=== PATIENT | female | born 1960 | race Caucasian/White ===

== ENCOUNTER → 2017-04-26 | Outpatient (CLI) | payer OTHER ==
[~2017-04-26] MED LIST: ALBUTEROL0.09 MG/A2 IH; ANAPROX DS550 MG PO; CETIRIZINE HYDR10 MG PO; CIPRO500 MG PO; CIPROFLOXACIN500 MG PO; CLARITIN10 MG PO; CYCLOBENZAPRINE10 MG PO; HYDROCODONE BIT1 T11 PO; HYDRODIURIL25 MG PO; IBU800 M1 PO; LISINOPRIL5 MG PO; MOTRIN600 MG PO; MOTRIN800 MG PO; NOVAPLUS V0.09 MG/Ac IH; PEN-V500 MG PO; PHENERGAN W/DM120 ML PO; PREDNICOT10 MG PO; PREDNISONE10 MG PO; PROAIR HFA0.09 MG/AC INH; QVAR 80MCG/INH7.3 G1 IH; QVAR0.08 MG/AC INH; VIBRAMYCIN100 MG PO; VICODIN 5/500 505 MG PO; VITAMIN D-32000 UNI1 PO; VITAMIN D5000 I2 PO; ZANTAC150 MG PO; ZITHROMAX Z PA250 MG PO; ZOFRAN ODT4 MG SL
== END | disposition home or self-care (01) ==
LOC: RAD 13:08
DX: J44.9 Chronic obstructive pulmonary disease, unspecified (principal); I10 Essential (primary) hypertension; J45.909 Unspecified asthma, uncomplicated; J18.9 Pneumonia, unspecified organism; F17.200 Nicotine dependence, unspecified, uncomplicated

== ENCOUNTER → 2017-04-27 | Outpatient (CLI) | payer OTHER | END | disposition home or self-care (01) | LOC: MAMMO 00:12 | DX: Z12.31 Encounter for screening mammogram for malignant neoplasm of breast (principal) ==

== ENCOUNTER → 2017-10-31 | Outpatient (CLI) | payer OTHER | END | disposition home or self-care (01) | LOC: CARD 10-27 08:30 → US 10-27 09:30 → CT 10:00 → US 10:00 | DX: I65.23 Occlusion and stenosis of bilateral carotid arteries (principal) ==

== ENCOUNTER → 2017-11-01 | Outpatient (CLI) | payer OTHER ==
[2017-11-01 08:46] LABS: BASO # 0.1 10*3/uL (0.0-0.1); BASO % 0.6 % (0.0-1.0); EOS # 0.2 10*3/uL (0.0-0.4); EOS % 1.7 % (1.0-4.0); HEMATOCRIT 45.9 % (37.0-47.0); HEMOGLOBIN 15.3 g/dl (12.0-16.0); LYMPH # 2.8 10*3/uL (1.3-4.4); LYMPH % 32.9 % (27.0-41.0); MEAN CELL VOLUME 86.4 fl (81.0-99.0); MEAN CORPUSCULAR HGB 28.8 pg (27.0-31.0); MEAN CORPUSCULAR HGB CONC 33.3 g/dl (33.0-37.0); MEAN PLATELET VOLUME 11.5 fl (9.6-12.3); MONO # 0.6 10*3/uL (0.1-1.0); MONO % 6.7 % (3.0-9.0); NEUT % 57.9 % (47.0-73.0); PLATELET COUNT AUTOMATED 285 10*3/uL (130-400); RED BLOOD COUNT 5.31 10*6/uL (4.10-5.10); WHITE BLOOD COUNT 8.6 10*3/uL (4.8-10.8)
[2017-11-01 09:12] LABS: ALBUMIN 3.8 gm/dl (3.1-4.5); ALKALINE PHOSPHATASE 91 U/L (45-117); BUN 11 mg/dl (7-24); CHLORIDE 107 mmol/L (98-107); FREE T4 0.85 ng/dl (0.76-1.46); SGOT/AST 21 IU/L (3-35); SGPT/ALT 28 U/L (12-78); SODIUM 144 mmol/L (136-145); TOTAL PROTEIN 7.4 gm/dL (6.4-8.2)
== END | disposition home or self-care (01) ==
LOC: LAB 08:24 → CARD 08:30
PROVIDERS: Internal Medicine
DX: R42 Dizziness and giddiness (principal)

== ENCOUNTER 2018-03-25 10:40 | Emergency (ER) | payer OTHER ==
[~2018-03-25] VITALS: Wt 74.8 kg
[~2018-03-25 10:40] MED LIST changes: -NOVAPLUS V0.09 MG/Ac IH; +PROVENTIL HFA6.7 GM INH; +VENTOLIN,PR2 MG/5 ML NEB
[2018-03-25 11:05] LABS: BASO # 0.1 10*3/uL (0.0-0.1); BASO % 0.4 % (0.0-1.0); EOS # 0.1 10*3/uL (0.0-0.4); EOS % 0.4 % (1.0-4.0); HEMATOCRIT 43.3 % (37.0-47.0); HEMOGLOBIN 14.2 g/dl (12.0-16.0); LYMPH # 2.2 10*3/uL (1.3-4.4); LYMPH % 15.7 % (27.0-41.0); MEAN CELL VOLUME 88.2 fl (81.0-99.0); MEAN CORPUSCULAR HGB 28.9 pg (27.0-31.0); MEAN CORPUSCULAR HGB CONC 32.8 g/dl (33.0-37.0); MEAN PLATELET VOLUME 11.1 fl (9.6-12.3); MONO # 0.9 10*3/uL (0.1-1.0); MONO % 6.4 % (3.0-9.0); NEUT # 10.6 10*3/uL (2.3-7.9); NEUT % 76.9 % (47.0-73.0); PLATELET COUNT AUTOMATED 238 10*3/uL (130-400); RED BLOOD COUNT 4.91 10*6/uL (4.10-5.10); RED CELL DISTRI WIDTH 13.6 % (0-14.5); WHITE BLOOD COUNT 13.8 10*3/uL (4.8-10.8)
[2018-03-25 11:35] LABS: ALBUMIN 3.8 gm/dl (3.1-4.5); ALKALINE PHOSPHATASE 85 U/L (45-117); BUN 10 mg/dl (7-24); CHLORIDE 109 mmol/L (98-107); CREATININE 0.96 mg/dL (0.55-1.02); POTASSIUM 3.7 mmol/L (3.5-5.1); SGOT/AST 13 IU/L (3-35); SGPT/ALT 21 U/L (12-78); SODIUM 142 mmol/L (136-145); TOTAL PROTEIN 7.1 gm/dL (6.4-8.2)
[2018-03-25 11:37] LABS: TROPONIN I < 0.015 ng/ml (<0.045)
[2018-03-25 12:36] VITALS: BP 116/66
[2018-03-25] MEDS ORDERED: ZITHROMAX250 MG PO (12:40)
[2018-03-25] MEDS ORDERED: PREDNISONE20 M1 PO (12:40)
== END 2018-03-25 12:40 | disposition home or self-care (01) ==
LOC: ED 10:40
PROVIDERS: Emergency Medicine
DX: J44.1 Chronic obstructive pulmonary disease with (acute) exacerbation (principal); F17.210 Nicotine dependence, cigarettes, uncomplicated

== ENCOUNTER 2018-04-06 14:08 | Inpatient (IN) | payer OTHER ==
[~2018-04-06] VITALS: Ht 162.5 cm; Wt 75.3 kg
--- NOTE | ~2018-04-06 | PR ---
[place], [place] PROGRESS NOTE NAME: DEX RIVAS [facility] #: [id number] UNIT #: [id number] ROOM: 404 DOCTOR: NELSY MOSQUEDA MD BIRTHDATE: [birth year] DOS: 04/08/2018 SUBJECTIVE: The patient, who has been admitted to hospital with acute exacerbation of COPD, emphysema, and pneumonitis. She is gradually recovering. The patient is on Solu-Medrol and that has put her CBC count high to 39,100 and 92% neutrophils, 5% lymphocytes, ____ and her basic metabolic profile showed glucose 181, possible due to Solu-Medrol. BUN is 22, creatinine 1.03. GFR is 55 and chloride 108, other values are normal. Her repeat CBC done today also showed white count elevated at 42,400 and so due to that reason which patient wanted to go home, but I told her that since her white count is so high, I cannot discharge her. Hopefully, she will stay in the hospital. Her blood culture is negative. PHYSICAL EXAMINATION: VITAL SIGNS: Her blood pressure 120/78, pulse 97, respirations 20, temperature 98. CHEST: Having occasional wheeze. No crepitation. HEART: Regular. ABDOMEN: Soft. PLAN: The patient is very strongly advised not to smoke when she goes home. ____ to follow. NELSY MOSQUEDA MD CM:PNTRANS [id number] NELSY MOSQUEDA MD 04/19/18 0846 interface
--- NOTE | ~2018-04-06 | EKG ---
[place], [place] ELECTROCARDIOGRAM REPORT NAME: DEX RIVAS UNIT #: [id number] ROOM: 404 DOCTOR: SIVA FIGUEREDO MD BIRTHDATE: [birth year] DOS: 04/06/2018 EKG REPORT TIME: 14:47:31 RATE AND RHYTHM: Normal sinus rhythm at 96 beats per minute. MN interval 132 milliseconds, QRS duration 94 milliseconds, corrected QT interval 448 milliseconds, QRS axis 25. IMPRESSION: 1. Sinus tachycardia. 2. Atrial premature complexes. SIVA FIGUEREDO MD CM:EKGRPT:ELECTROCARDIOGRAM REPORT [id number] SIVA FIGUEREDO MD
--- NOTE | ~2018-04-06 | WRIGHTHP ---
[place], [place] PATIENT HISTORY AND PHYSICAL EXAM NAME: DEX RIVAS [facility] #: [id number] UNIT #: [id number] ROOM: 404 DOCTOR: NELSY MOSQUEDA MD BIRTHDATE: [birth year] DOS: 04/06/2018 HISTORY OF PRESENT ILLNESS: The patient has been admitted to hospital with acute exacerbation of COPD with emphysema with failure of outpatient treatment of pneumonia. The patient is having cough with increasing difficulty in breathing for last many days, was seen by Dr. Ariza in the office, from where she was admitted to hospital. PAST MEDICAL HISTORY: The patient has past history of COPD with emphysema, has been admitted to the hospital for that. She has recurring history of bronchitis, chest pain, thoracic sprain. ALLERGIES: The patient is not allergic to medications. MEDICATIONS: She is using albuterol 2 puffs q. 6 hours p.r.n., lisinopril 5 mg daily, QVAR 2 puffs twice daily, vitamin D 2000 units daily, Zyrtec 10 mg daily. SOCIAL HISTORY: The patient does smoke half pack of cigarettes daily. She denies drinking alcohol. No recreational drugs. FAMILY HISTORY: There is strong history of diabetes mellitus, cancer, myocardial infarction, hypertension in the family. PHYSICAL EXAMINATION: GENERAL: The patient is conscious, alert and oriented. VITAL SIGNS: Her blood pressure 115/85, pulse 100, respirations 18, temperature 97.6. HEENT: Unremarkable. No glandular enlargement. NECK: Trachea is center. NECK: Veins are not distended. HEART: Regular. LUNGS: Showing increased expiration phase with some wheezing. ABDOMEN: Soft. Liver and spleen not palpable. No area of tenderness. No mass palpable. EXTREMITIES: No edema of leg. LABORATORY DATA: Lactic acid is 1.9, which is normal. CBC showed white count 16,000, hemoglobin 15.7, hematocrit 47.7. Protime is 10.8. Comprehensive metabolic profile showed glucose 114, BUN 10, creatinine 1.21, GFR 46, potassium 3.1. C-reactive protein high. Other values are normal. ProBNP is 55, which is normal. Chest x-ray shows no acute cardiopulmonary process. DIAGNOSES: Failure of treatment of pneumonia as outpatient with history of chronic obstructive pulmonary disease, emphysema, tobacco abuse, history of hypertension. PLAN OF TREATMENT: The patient will be admitted to the hospital, will be started on Solu-Medrol, will continue taking her home medication, aerosol treatment, Rocephin 1 gram IV every day, levofloxacin 500 IV daily and Solu-Medrol 125 mg every 8 hours. [place], [place] PATIENT HISTORY AND PHYSICAL EXAM NAME: DEX RIVAS UNIT #: [id number] ROOM: 404 DOCTOR: JAYLIN ALLEN,NELSY Terry BIRTHDATE: [birth year] NELSY MOSQUEDA MD CM:HISPHYS:PATIENT HISTORY AND PHYSICAL EXAMINATION 26 NELSY MOSQUEDA MD 04/19/18 0846 interface
[~2018-04-06 14:08] MED LIST changes: +PREDNISONE20 M1 PO; +ZITHROMAX250 MG PO
[2018-04-06 14:12] VITALS: BP 97/80
[2018-04-06 14:57] LABS: BASO # 0.1 10*3/uL (0.0-0.1); BASO % 0.4 % (0.0-1.0); EOS # 0.2 10*3/uL (0.0-0.4); EOS % 1.4 % (1.0-4.0); HEMATOCRIT 47.7 % (37.0-47.0); HEMOGLOBIN 15.7 g/dl (12.0-16.0); LYMPH # 4.2 10*3/uL (1.3-4.4); LYMPH % 26.1 % (27.0-41.0); MEAN CELL VOLUME 86.6 fl (81.0-99.0); MEAN CORPUSCULAR HGB 28.5 pg (27.0-31.0); MEAN CORPUSCULAR HGB CONC 32.9 g/dl (33.0-37.0); MEAN PLATELET VOLUME 11.4 fl (9.6-12.3); MONO # 1.2 10*3/uL (0.1-1.0); MONO % 7.3 % (3.0-9.0); NEUT # 10.5 10*3/uL (2.3-7.9); NEUT % 64.2 % (47.0-73.0); PLATELET COUNT AUTOMATED 313 10*3/uL (130-400); RED BLOOD COUNT 5.51 10*6/uL (4.10-5.10); RED CELL DISTRI WIDTH 13.6 % (0-14.5); WHITE BLOOD COUNT 16.3 10*3/uL (4.8-10.8)
[2018-04-06 15:09] LABS: ACT PARTIAL THROMBO TIME 24.4 SECONDS (20.8-31.5)
[2018-04-06 15:15] LABS: ALBUMIN 4.2 gm/dl (3.1-4.5); ALKALINE PHOSPHATASE 88 U/L (45-117); BUN 10 mg/dl (7-24); CHLORIDE 106 mmol/L (98-107); CREATININE 1.21 mg/dL (0.55-1.02); LIPASE 224 U/L (73-393); POTASSIUM 3.1 mmol/L (3.5-5.1); SGOT/AST 12 IU/L (3-35); SGPT/ALT 17 U/L (12-78); SODIUM 142 mmol/L (136-145); TOTAL PROTEIN 7.8 gm/dL (6.4-8.2)
[2018-04-06 15:21] LABS: TROPONIN I < 0.015 ng/ml (<0.045)
[2018-04-06 16:00] VITALS: BP 138/80
[2018-04-06 16:05] VITALS: BP 139/81
[2018-04-06] MEDS ORDERED: LIPITOR20 MG PO (17:04)
[2018-04-06] MEDS ORDERED: HYDR25T PO (17:05)
[2018-04-06] MEDS ORDERED: GABAPENTIN100 M2 PO (17:06)
[2018-04-06] MEDS ORDERED: CLARITIN10 MG PO (17:07)
[2018-04-06] MEDS ORDERED: BREO ELLIPTA 21 EACH INH (17:08)
[2018-04-06 20:00] VITALS: BP 124/72
[2018-04-07] VITALS: BP 115/85
[2018-04-07 08:00] VITALS: BP 116/68
[2018-04-07 12:00] VITALS: BP 112/60
[2018-04-07 16:00] VITALS: BP 120/69
[2018-04-07 20:00] VITALS: BP 109/63
[2018-04-08] VITALS: BP 113/60
[2018-04-08 06:40] LABS: MEAN CELL VOLUME 88.7 fl (81.0-99.0); MEAN CORPUSCULAR HGB 28.8 pg (27.0-31.0); MEAN CORPUSCULAR HGB CONC 32.5 g/dl (33.0-37.0); MEAN PLATELET VOLUME 12.3 fl (9.6-12.3); PLATELET COUNT AUTOMATED 245 10*3/uL (130-400); RED BLOOD COUNT 4.41 10*6/uL (4.10-5.10); RED CELL DISTRI WIDTH 13.7 % (0-14.5)
[2018-04-08 06:44] LABS: HEMATOCRIT 39.1 % (37.0-47.0); HEMOGLOBIN 12.7 g/dl (12.0-16.0)
[2018-04-08 07:01] LABS: CHLORIDE 108 mmol/L (98-107); POTASSIUM 3.9 mmol/L (3.5-5.1); SODIUM 143 mmol/L (136-145)
[2018-04-08 07:04] LABS: CREATININE 1.03 mg/dL (0.55-1.02)
[2018-04-08 07:12] LABS: BURR CELLS MODERATE; PLATELET SUFFICIENCY NORMAL (NORMAL); TOTAL CELLS COUNTED 100 #CELLS
[2018-04-08 07:15] LABS: WHITE BLOOD COUNT 39.1 10*3/uL (4.8-10.8)
[2018-04-08 07:19] LABS: BUN 22 mg/dl (7-24)
[2018-04-08 07:38] LABS: HEMATOCRIT 40.6 % (37.0-47.0); HEMOGLOBIN 13.5 g/dl (12.0-16.0); MEAN CELL VOLUME 87.7 fl (81.0-99.0); MEAN CORPUSCULAR HGB 29.2 pg (27.0-31.0); MEAN CORPUSCULAR HGB CONC 33.3 g/dl (33.0-37.0); PLATELET COUNT AUTOMATED 253 10*3/uL (130-400); RED BLOOD COUNT 4.63 10*6/uL (4.10-5.10); RED CELL DISTRI WIDTH 13.8 % (0-14.5)
[2018-04-08 07:57] LABS: PLATELET SUFFICIENCY NORMAL (NORMAL); TOTAL CELLS COUNTED 100 #CELLS
[2018-04-08 08:00] VITALS: BP 120/78
[2018-04-08 08:00] LABS: WHITE BLOOD COUNT 42.4 10*3/uL (4.8-10.8)
[2018-04-08 12:00] VITALS: BP 136/76
[2018-04-08 16:00] VITALS: BP 117/72
[2018-04-08 20:00] VITALS: BP 108/72
[2018-04-09] VITALS: BP 127/85
[2018-04-09 06:28] LABS: HEMATOCRIT 40.7 % (37.0-47.0); HEMOGLOBIN 13.1 g/dl (12.0-16.0); MEAN CELL VOLUME 89.6 fl (81.0-99.0); MEAN CORPUSCULAR HGB 28.9 pg (27.0-31.0); MEAN CORPUSCULAR HGB CONC 32.2 g/dl (33.0-37.0); MEAN PLATELET VOLUME 12.1 fl (9.6-12.3); PLATELET COUNT AUTOMATED 224 10*3/uL (130-400); RED BLOOD COUNT 4.54 10*6/uL (4.10-5.10); RED CELL DISTRI WIDTH 14.1 % (0-14.5); WHITE BLOOD COUNT 16.2 10*3/uL (4.8-10.8)
[2018-04-09 07:16] LABS: BASOPHILS 1 % (0-1); PLATELET SUFFICIENCY NORMAL (NORMAL); TOTAL CELLS COUNTED 100 #CELLS
[2018-04-09 08:00] VITALS: BP 114/86
[2018-04-09] MEDS ORDERED: AVPAK AZITHROM250 M1 PO (13:53)
[2018-04-09] MEDS ORDERED: NICODERM T (13:53)
[2018-04-09] MEDS ORDERED: NICODERM CQ1 EAC1 T (13:57)
[2018-04-09 14:09] LABS: BUN 20 mg/dl (7-24); CHLORIDE 102 mmol/L (98-107); CREATININE 0.91 mg/dL (0.55-1.02); PHOSPHOROUS 3.9 mg/dL (2.5-4.9); POTASSIUM 3.6 mmol/L (3.5-5.1); SODIUM 140 mmol/L (136-145)
== END 2018-04-09 15:33 | disposition home or self-care (01) | DRG 193 ==
LOC: ED 14:08 → EDHOLD 15:42 → 4E 15:42
PROVIDERS: Emergency Medicine; Family Medicine; Internal Medicine; Internal Medicine Nephrology
DX: J18.9 Pneumonia, unspecified organism (principal); R65.11 Systemic inflammatory response syndrome (SIRS) of non-infectious origin with acute organ dysfunction; E87.8 Other disorders of electrolyte and fluid balance, not elsewhere classified; J44.1 Chronic obstructive pulmonary disease with (acute) exacerbation; J44.0 Chronic obstructive pulmonary disease with (acute) lower respiratory infection; I10 Essential (primary) hypertension; R00.0 Tachycardia, unspecified; D72.810 Lymphocytopenia; D72.821 Monocytosis (symptomatic); E87.6 Hypokalemia; R73.9 Hyperglycemia, unspecified; E66.3 Overweight; Z79.899 Other long term (current) drug therapy; Z72.0 Tobacco use; Z98.51 Tubal ligation status; Z83.3 Family history of diabetes mellitus; Z82.49 Family history of ischemic heart disease and other diseases of the circulatory system; Z80.9 Family history of malignant neoplasm, unspecified; Z68.28 Body mass index [BMI] 28.0-28.9, adult

== ENCOUNTER 2018-05-11 14:14 | Emergency (ER) | payer OTHER ==
[~2018-05-11] VITALS: Ht 162.5 cm; Wt 72.6 kg
[~2018-05-11 14:14] MED LIST changes: +AVPAK AZITHROM250 M1 PO; +BREO ELLIPTA 21 EACH INH; +GABAPENTIN100 M2 PO; +HYDR25T PO; +LIPITOR20 MG PO; +NICODERM CQ1 EAC1 T; +NICODERM T
[2018-05-11 14:16] VITALS: BP 131/85
== END 2018-05-11 18:10 | disposition home or self-care (01) ==
LOC: ED 14:14
DX: S80.12XA Contusion of left lower leg, initial encounter (principal); F17.200 Nicotine dependence, unspecified, uncomplicated; Z98.890 Other specified postprocedural states; Z90.49 Acquired absence of other specified parts of digestive tract; Z90.710 Acquired absence of both cervix and uterus; Z98.51 Tubal ligation status; Z79.899 Other long term (current) drug therapy; W22.8XXA Striking against or struck by other objects, initial encounter; Y93.89 Activity, other specified; Y92.89 Other specified places as the place of occurrence of the external cause; Y99.9 Unspecified external cause status

== ENCOUNTER 2018-07-05 11:08 | Emergency (ER) | payer OTHER ==
[~2018-07-05] VITALS: Ht 162.5 cm; Wt 74.8 kg
--- NOTE | ~2018-07-05 | EKG ---
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
[2018-07-05 11:38] LABS: BASO # 0.1 10*3/uL (0.0-0.1); BASO % 0.7 % (0.0-1.0); EOS # 0.2 10*3/uL (0.0-0.4); EOS % 2.4 % (1.0-4.0); HEMATOCRIT 44.5 % (37.0-47.0); LYMPH # 2.4 10*3/uL (1.3-4.4); LYMPH % 29.2 % (27.0-41.0); MEAN CELL VOLUME 86.2 fl (81.0-99.0); MEAN CORPUSCULAR HGB 29.1 pg (27.0-31.0); MEAN CORPUSCULAR HGB CONC 33.7 g/dl (33.0-37.0); MEAN PLATELET VOLUME 11.6 fl (9.6-12.3); MONO # 0.8 10*3/uL (0.1-1.0); MONO % 9.8 % (3.0-9.0); NEUT # 4.8 10*3/uL (2.3-7.9); NEUT % 57.7 % (47.0-73.0); PLATELET COUNT AUTOMATED 257 10*3/uL (130-400); RED BLOOD COUNT 5.16 10*6/uL (4.10-5.10); WHITE BLOOD COUNT 8.3 10*3/uL (4.8-10.8)
[2018-07-05 11:55] LABS: ALKALINE PHOSPHATASE 92 U/L (45-117); BUN 20 mg/dl (7-24); CHLORIDE 104 mmol/L (98-107); POTASSIUM 3.9 mmol/L (3.5-5.1); SGOT/AST 18 IU/L (3-35); SGPT/ALT 23 U/L (12-78); SODIUM 139 mmol/L (136-145); TOTAL PROTEIN 7.6 gm/dL (6.4-8.2); TROPONIN I < 0.015 ng/ml (<0.045)
[2018-07-05] MEDS ORDERED: DOXYCYCLINE100 M3 PO (13:21)
[2018-07-05] MEDS ORDERED: PREDNISONE10 MG PO (13:21)
== END 2018-07-05 13:53 | disposition home or self-care (01) ==
LOC: ED 11:08
PROVIDERS: Internal Medicine
DX: J44.1 Chronic obstructive pulmonary disease with (acute) exacerbation (principal); M81.0 Age-related osteoporosis without current pathological fracture; F17.200 Nicotine dependence, unspecified, uncomplicated; J45.909 Unspecified asthma, uncomplicated; Z79.899 Other long term (current) drug therapy

== ENCOUNTER 2018-10-28 14:49 | Emergency (ER) | payer MEDICARE, MEDICAID ==
[~2018-10-28] VITALS: Ht 162.5 cm; Wt 72.6 kg
[~2018-10-28 14:49] MED LIST changes: +DOXYCYCLINE100 M3 PO
[2018-10-28 14:51] VITALS: BP 150/90
[2018-10-28] MEDS ORDERED: NORCO 5-325 TA1 EACH PO (16:19)
== END 2018-10-28 16:25 | disposition home or self-care (01) ==
LOC: ED 14:49
DX: S22.31XA Fracture of one rib, right side, initial encounter for closed fracture (principal); R05 Cough; Z79.899 Other long term (current) drug therapy; W01.0XXA Fall on same level from slipping, tripping and stumbling without subsequent striking against object, initial encounter; Y93.89 Activity, other specified; Y92.89 Other specified places as the place of occurrence of the external cause; Y99.8 Other external cause status

== ENCOUNTER → 2018-11-13 | Outpatient (CLI) | payer MEDICARE, MEDICAID ==
[~2018-11-13] MED LIST changes: +NORCO 5-325 TA1 EACH PO; +TAMIFLU 75MG CA75 MG PO; +VALTREX1000 MG PO
== END | disposition home or self-care (01) ==
LOC: RAD 13:44
DX: S22.31XD Fracture of one rib, right side, subsequent encounter for fracture with routine healing (principal); X58.XXXD Exposure to other specified factors, subsequent encounter

== ENCOUNTER 2019-01-07 14:55 | Emergency (ER) | payer MEDICARE ==
[~2019-01-07] VITALS: Ht 162.5 cm; Wt 72.6 kg
--- NOTE | ~2019-01-07 | EKG ---
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
[2019-01-07 14:55] VITALS: BP 116/78
[~2019-01-07 14:55] MED LIST changes: -TAMIFLU 75MG CA75 MG PO; -VALTREX1000 MG PO
[2019-01-07 16:16] LABS: BASO % 0.2 % (0.0-1.0); EOS # 0.1 10*3/uL (0.0-0.4); EOS % 0.7 % (1.0-4.0); HEMATOCRIT 44.9 % (37.0-47.0); HEMOGLOBIN 14.9 g/dl (12.0-16.0); LYMPH # 0.4 10*3/uL (1.3-4.4); LYMPH % 4.9 % (27.0-41.0); MEAN CELL VOLUME 86.8 fl (81.0-99.0); MEAN CORPUSCULAR HGB 28.8 pg (27.0-31.0); MEAN CORPUSCULAR HGB CONC 33.2 g/dl (33.0-37.0); MEAN PLATELET VOLUME 11.5 fl (9.6-12.3); MONO # 0.9 10*3/uL (0.1-1.0); MONO % 10.3 % (3.0-9.0); NEUT # 7.4 10*3/uL (2.3-7.9); NEUT % 83.6 % (47.0-73.0); PLATELET COUNT AUTOMATED 271 10*3/uL (130-400); RED BLOOD COUNT 5.17 10*6/uL (4.10-5.10); RED CELL DISTRI WIDTH 14.6 % (0-14.5); WHITE BLOOD COUNT 8.8 10*3/uL (4.8-10.8)
[2019-01-07 16:31] LABS: ACT PARTIAL THROMBO TIME 25.8 SECONDS (20.8-31.5); INTERNATIONAL NORM RATIO 1.1 (2.0-3.5)
[2019-01-07 16:41] LABS: ALBUMIN 3.7 gm/dl (3.1-4.5); ALKALINE PHOSPHATASE 95 U/L (45-117); BUN 13 mg/dl (7-24); CHLORIDE 103 mmol/L (98-107); CREATININE 1.07 mg/dL (0.55-1.02); POTASSIUM 3.7 mmol/L (3.5-5.1); SGOT/AST 18 IU/L (3-35); SGPT/ALT 18 U/L (12-78); SODIUM 137 mmol/L (136-145); TOTAL PROTEIN 7.8 gm/dL (6.4-8.2)
[2019-01-07 16:45] LABS: TROPONIN I < 0.015 ng/ml (<0.045)
[2019-01-07 16:54] LABS: BILIRUBIN NEGATIVE (NEGATIVE); BLOOD NEGATIVE (NEGATIVE); CLARITY CLEAR (CLEAR); COLOR YELLOW (YELLOW); GLUCOSE NEGATIVE (NEGATIVE); KETONE NEGATIVE (NEGATIVE); LEUKO ESTERASE TRACE (NEGATIVE); NITRITE NEGATIVE (NEGATIVE); SPECIFIC GRAVITY 1.015 (1.005-1.030); UROBILINOGEN 0.2 E.U./dl (0.2-1.0)
[2019-01-07 17:00] LABS: BACTERIA 2+; MUCOUS TRACE; RBC 0-2 rbc/hpf (0-2)
[2019-01-07] MEDS ORDERED: TAMIFLU 75MG CA75 MG PO (17:13)
[2019-01-07] MEDS ORDERED: PREDNISONE10 MG PO (17:16)
[2019-01-07] MEDS ORDERED: VIBRAMYCIN100 MG PO (17:16)
[2019-03-10] MEDS ORDERED: PREDNISONE20 M1 PO (14:21)
[2019-03-10] MEDS ORDERED: VALTREX1000 MG PO (14:21)
== END 2019-01-07 17:28 | disposition home or self-care (01) ==
LOC: ED 14:55
PROVIDERS: Physician Assistant
DX: J10.1 Influenza due to other identified influenza virus with other respiratory manifestations (principal); J44.9 Chronic obstructive pulmonary disease, unspecified; F17.200 Nicotine dependence, unspecified, uncomplicated; Z79.899 Other long term (current) drug therapy; Z79.2 Long term (current) use of antibiotics; Z90.710 Acquired absence of both cervix and uterus; Z90.49 Acquired absence of other specified parts of digestive tract

== ENCOUNTER → 2019-02-13 | Outpatient (CLI) | payer MEDICARE ==
[~2019-02-13] MED LIST changes: +TAMIFLU 75MG CA75 MG PO; +VALTREX1000 MG PO
[2019-02-13 15:13] LABS: ALBUMIN 3.7 gm/dl (3.1-4.5); ALKALINE PHOSPHATASE 97 U/L (45-117); BUN 18 mg/dl (7-24); CHLORIDE 104 mmol/L (98-107); CREATININE 1.08 mg/dL (0.55-1.02); PHOSPHOROUS 3.5 mg/dL (2.5-4.9); POTASSIUM 3.7 mmol/L (3.5-5.1); SGOT/AST 17 IU/L (3-35); SGPT/ALT 21 U/L (12-78); SODIUM 141 mmol/L (136-145); TOTAL PROTEIN 7.5 gm/dL (6.4-8.2)
[2019-02-13 15:35] LABS: VITAMIN D, 25-HYDROXY 29.6 ng/mL (30-100)
[2019-02-13 15:36] LABS: PTH INTACT 101.6 pg/mL (18.5-88.0)
== END | disposition home or self-care (01) ==
LOC: LAB 14:29 → US 15:00
PROVIDERS: Internal Medicine
DX: I12.9 Hypertensive chronic kidney disease with stage 1 through stage 4 chronic kidney disease, or unspecified chronic kidney disease (principal); N18.3 Chronic kidney disease, stage 3 (moderate); M54.5 Low back pain; E78.5 Hyperlipidemia, unspecified; Z87.440 Personal history of urinary (tract) infections; Z90.710 Acquired absence of both cervix and uterus

== ENCOUNTER → 2019-03-12 | Outpatient (CLI) | payer MEDICARE | END | disposition home or self-care (01) | LOC: US 07:12 | DX: N64.4 Mastodynia (principal) ==

== ENCOUNTER → 2019-03-26 | Outpatient (CLI) | payer MEDICARE ==
[2019-03-26 13:16] LABS: BILIRUBIN NEGATIVE (NEGATIVE); BLOOD NEGATIVE (NEGATIVE); CLARITY CLEAR (CLEAR); COLOR YELLOW (YELLOW); GLUCOSE NEGATIVE (NEGATIVE); KETONE NEGATIVE (NEGATIVE); LEUKO ESTERASE NEGATIVE (NEGATIVE); NITRITE NEGATIVE (NEGATIVE); UROBILINOGEN 0.2 E.U./dl (0.2-1.0)
[2019-03-26 13:26] LABS: BASO # 0.1 10*3/uL (0.0-0.1); BASO % 0.5 % (0.0-1.0); EOS # 0.1 10*3/uL (0.0-0.4); EOS % 1.1 % (1.0-4.0); HEMATOCRIT 46.7 % (37.0-47.0); HEMOGLOBIN 15.5 g/dl (12.0-16.0); LYMPH # 2.2 10*3/uL (1.3-4.4); LYMPH % 22.7 % (27.0-41.0); MEAN CELL VOLUME 88.3 fl (81.0-99.0); MEAN CORPUSCULAR HGB 29.3 pg (27.0-31.0); MEAN CORPUSCULAR HGB CONC 33.2 g/dl (33.0-37.0); MEAN PLATELET VOLUME 11.5 fl (9.6-12.3); MONO # 0.8 10*3/uL (0.1-1.0); MONO % 8.3 % (3.0-9.0); NEUT # 6.5 10*3/uL (2.3-7.9); NEUT % 66.9 % (47.0-73.0); PLATELET COUNT AUTOMATED 295 10*3/uL (130-400); RED BLOOD COUNT 5.29 10*6/uL (4.10-5.10); RED CELL DISTRI WIDTH 13.8 % (0-14.5); WHITE BLOOD COUNT 9.8 10*3/uL (4.8-10.8)
[2019-03-26 13:32] LABS: WBC 0-2 wbc/hpf (0-5)
[2019-03-26 13:57] LABS: ALBUMIN 3.7 gm/dl (3.1-4.5); BUN 12 mg/dl (7-24); CHLORIDE 105 mmol/L (98-107); CREATININE 1.02 mg/dL (0.55-1.02); POTASSIUM 3.8 mmol/L (3.5-5.1); SGOT/AST 16 IU/L (3-35); SGPT/ALT 25 U/L (12-78); SODIUM 139 mmol/L (136-145); TOTAL PROTEIN 7.5 gm/dL (6.4-8.2)
[2019-03-26 13:58] LABS: ALKALINE PHOSPHATASE 90 U/L (45-117)
== END | disposition home or self-care (01) ==
LOC: LAB 12:43
PROVIDERS: Nurse Practitioner Family
DX: N39.0 Urinary tract infection, site not specified (principal); I10 Essential (primary) hypertension

== ENCOUNTER → 2019-04-22 | Outpatient (CLI) | payer MEDICARE | END | disposition home or self-care (01) | LOC: US 09:28 | DX: D35.01 Benign neoplasm of right adrenal gland (principal) ==

== ENCOUNTER → 2019-05-20 | Outpatient (CLI) | payer MEDICARE ==
[2019-05-20 13:08] LABS: CREATININE 0.91 mg/dL (0.55-1.02)
== END | disposition home or self-care (01) ==
LOC: LAB 11:58
PROVIDERS: Radiology Diagnostic Radiology
DX: D35.01 Benign neoplasm of right adrenal gland (principal)

== ENCOUNTER → 2019-06-12 | Outpatient (CLI) | payer MEDICARE ==
[2019-06-12 08:45] LABS: BUN 11 mg/dl (7-24); CHLORIDE 103 mmol/L (98-107); CREATININE 0.94 mg/dL (0.55-1.02); PHOSPHOROUS 4.2 mg/dL (2.5-4.9); POTASSIUM 3.7 mmol/L (3.5-5.1); SODIUM 137 mmol/L (136-145)
[2019-06-12 09:17] LABS: PTH INTACT 122.3 pg/mL (18.5-88.0); VITAMIN D, 25-HYDROXY 30.3 ng/mL (30-100)
[2019-06-15 15:08] LABS: ALDOSTERONE/RENIN RATIO 72.9 (0.0-30.0); RENIN ACTIVITY (PLASMA) 0.181 ng/mL/hr (0.167-5.380)
[2019-06-17 15:07] LABS: METANEPHRINE, PLASMA 16 pg/mL (0-62); NORMETANEPHRINE, PLASMA 83 pg/mL (0-145)
== END ==
LOC: LAB 07:40
PROVIDERS: Internal Medicine Nephrology
DX: D35.00 Benign neoplasm of unspecified adrenal gland (principal); N18.3 Chronic kidney disease, stage 3 (moderate); E83.9 Disorder of mineral metabolism, unspecified

== ENCOUNTER → 2019-07-01 | Outpatient (CLI) | payer MEDICARE | END | disposition home or self-care (01) | LOC: NM 09:51 | DX: N25.81 Secondary hyperparathyroidism of renal origin (principal); I10 Essential (primary) hypertension ==

== ENCOUNTER → 2019-07-06 | Outpatient (CLI) | payer OTHER, MEDICARE ==
[2019-07-07 06:35] LABS: CREATININE,URINE 141.8 mg/dL (Not Estab.)
== END | disposition home or self-care (01) ==
LOC: LAB 16:48
PROVIDERS: Internal Medicine Nephrology
DX: N25.81 Secondary hyperparathyroidism of renal origin (principal)

== ENCOUNTER 2019-11-26 08:08 | Emergency (ER) | payer MEDICARE ==
[~2019-11-26] VITALS: Ht 162.5 cm; Wt 68.9 kg
[2019-11-26 08:18] VITALS: BP 130/90
[2019-11-26 09:42] LABS: BASO # 0.1 10*3/uL (0.0-0.1); BASO % 0.5 % (0.0-1.0); EOS % 0.4 % (1.0-4.0); HEMATOCRIT 44.9 % (37.0-47.0); HEMOGLOBIN 14.5 g/dl (12.0-16.0); LYMPH # 1.5 10*3/uL (1.3-4.4); LYMPH % 15.8 % (27.0-41.0); MEAN CORPUSCULAR HGB 28.1 pg (27.0-31.0); MEAN CORPUSCULAR HGB CONC 32.3 g/dl (33.0-37.0); MEAN PLATELET VOLUME 11.1 fl (9.6-12.3); MONO # 1.2 10*3/uL (0.1-1.0); MONO % 12.3 % (3.0-9.0); NEUT # 6.8 10*3/uL (2.3-7.9); NEUT % 70.7 % (47.0-73.0); PLATELET COUNT AUTOMATED 258 10*3/uL (130-400); RED BLOOD COUNT 5.16 10*6/uL (4.10-5.10); RED CELL DISTRI WIDTH 13.8 % (0-14.5); WHITE BLOOD COUNT 9.6 10*3/uL (4.8-10.8)
[2019-11-26 09:51] LABS: ACT PARTIAL THROMBO TIME 31.9 SECONDS (20.0-32.1)
[2019-11-26 10:00] LABS: ALBUMIN 3.8 gm/dl (3.1-4.5); ALKALINE PHOSPHATASE 89 U/L (45-117); BUN 11 mg/dl (7-24); CHLORIDE 105 mmol/L (98-107); CREATININE 1.15 mg/dL (0.55-1.02); LIPASE 182 U/L (73-393); POTASSIUM 4.1 mmol/L (3.5-5.1); SGOT/AST 16 IU/L (3-35); SGPT/ALT 21 U/L (12-78); SODIUM 137 mmol/L (136-145); TOTAL PROTEIN 7.5 gm/dL (6.4-8.2)
[2019-11-26 10:05] LABS: TROPONIN I < 0.015 ng/ml (<0.045)
[2019-11-26 10:37] LABS: BILIRUBIN NEGATIVE (NEGATIVE); BLOOD NEGATIVE (NEGATIVE); CLARITY CLEAR (CLEAR); COLOR YELLOW (YELLOW); GLUCOSE NEGATIVE (NEGATIVE); KETONE NEGATIVE (NEGATIVE); LEUKO ESTERASE NEGATIVE (NEGATIVE); NITRITE NEGATIVE (NEGATIVE); PH 8.5 (5.0-9.0); UROBILINOGEN 0.2 E.U./dl (0.2-1.0)
[2019-11-26 10:38] LABS: BACTERIA TRACE; EPITHELIAL CELLS 0-2
[2019-11-26] MEDS ORDERED: TAMIFLU 75MG CA75 MG PO (10:51)
== END 2019-11-26 10:57 | disposition home or self-care (01) ==
LOC: ED 08:08
PROVIDERS: Family Medicine
DX: J11.1 Influenza due to unidentified influenza virus with other respiratory manifestations (principal); M81.0 Age-related osteoporosis without current pathological fracture; I10 Essential (primary) hypertension; J44.9 Chronic obstructive pulmonary disease, unspecified; F17.200 Nicotine dependence, unspecified, uncomplicated; Z79.899 Other long term (current) drug therapy; Z79.2 Long term (current) use of antibiotics; Z90.49 Acquired absence of other specified parts of digestive tract; Z90.710 Acquired absence of both cervix and uterus

== ENCOUNTER 2019-12-17 17:55 | Emergency (ER) | payer MEDICARE ==
[~2019-12-17] VITALS: Ht 162.5 cm; Wt 68.9 kg
[2019-12-17 18:01] VITALS: BP 125/75
[2019-12-17 18:53] LABS: BASO # 0.1 10*3/uL (0.0-0.1); BASO % 0.3 % (0.0-1.0); EOS # 0.2 10*3/uL (0.0-0.4); EOS % 1.3 % (1.0-4.0); HEMATOCRIT 42.6 % (37.0-47.0); HEMOGLOBIN 13.9 g/dl (12.0-16.0); LYMPH # 2.4 10*3/uL (1.3-4.4); LYMPH % 13.2 % (27.0-41.0); MEAN CELL VOLUME 88.2 fl (81.0-99.0); MEAN CORPUSCULAR HGB 28.8 pg (27.0-31.0); MEAN CORPUSCULAR HGB CONC 32.6 g/dl (33.0-37.0); MEAN PLATELET VOLUME 11.2 fl (9.6-12.3); MONO # 1.3 10*3/uL (0.1-1.0); MONO % 7.2 % (3.0-9.0); NEUT % 77.4 % (47.0-73.0); PLATELET COUNT AUTOMATED 268 10*3/uL (130-400); RED BLOOD COUNT 4.83 10*6/uL (4.10-5.10)
[2019-12-17 19:07] LABS: ALBUMIN 3.4 gm/dl (3.1-4.5); ALKALINE PHOSPHATASE 85 U/L (45-117); BUN 21 mg/dl (7-24); CHLORIDE 109 mmol/L (98-107); CREATININE 0.88 mg/dL (0.55-1.02); POTASSIUM 4.1 mmol/L (3.5-5.1); SGOT/AST 12 IU/L (3-35); SGPT/ALT 21 U/L (12-78); SODIUM 139 mmol/L (136-145); TOTAL PROTEIN 6.7 gm/dL (6.4-8.2)
== END 2019-12-17 20:55 | disposition short-term general hospital (02) ==
LOC: ED 17:55
PROVIDERS: Physician Assistant
DX: S72.002A Fracture of unspecified part of neck of left femur, initial encounter for closed fracture (principal); I10 Essential (primary) hypertension; J44.9 Chronic obstructive pulmonary disease, unspecified; M81.0 Age-related osteoporosis without current pathological fracture; F17.200 Nicotine dependence, unspecified, uncomplicated; Z79.2 Long term (current) use of antibiotics; Z90.49 Acquired absence of other specified parts of digestive tract; Z79.899 Other long term (current) drug therapy; W18.01XA Striking against sports equipment with subsequent fall, initial encounter; Y93.89 Activity, other specified; Y92.524 Gas station as the place of occurrence of the external cause; Y99.8 Other external cause status

== ENCOUNTER → 2020-01-01 | Outpatient (CLI) | payer MEDICARE ==
[2020-01-01 16:15] LABS: BASO # 0.1 10*3/uL (0.0-0.1); BASO % 0.7 % (0.0-1.0); EOS # 0.2 10*3/uL (0.0-0.4); EOS % 1.7 % (1.0-4.0); HEMATOCRIT 43.9 % (37.0-47.0); HEMOGLOBIN 14.1 g/dl (12.0-16.0); LYMPH # 2.8 10*3/uL (1.3-4.4); LYMPH % 23.3 % (27.0-41.0); MEAN CORPUSCULAR HGB 28.9 pg (27.0-31.0); MEAN CORPUSCULAR HGB CONC 32.1 g/dl (33.0-37.0); MONO # 1.1 10*3/uL (0.1-1.0); MONO % 8.9 % (3.0-9.0); NEUT # 7.8 10*3/uL (2.3-7.9); NEUT % 64.8 % (47.0-73.0); PLATELET COUNT AUTOMATED 364 10*3/uL (130-400); RED BLOOD COUNT 4.88 10*6/uL (4.10-5.10); WHITE BLOOD COUNT 12.1 10*3/uL (4.8-10.8)
== END | disposition home or self-care (01) ==
LOC: LAB 15:25
PROVIDERS: Internal Medicine
DX: R19.5 Other fecal abnormalities (principal)

== ENCOUNTER → 2020-01-02 | Outpatient (CLI) | payer MEDICARE | END | disposition home or self-care (01) | LOC: LAB 16:01 | DX: R19.5 Other fecal abnormalities (principal) ==

== ENCOUNTER → 2020-05-20 | Outpatient (CLI) | payer MEDICARE | END | disposition home or self-care (01) | LOC: RAD 08:41 | DX: M81.0 Age-related osteoporosis without current pathological fracture (principal); Z87.81 Personal history of (healed) traumatic fracture ==

== ENCOUNTER 2020-08-06 10:21 | Emergency (ER) | payer MEDICARE ==
[~2020-08-06] VITALS: Wt 68.9 kg
[2020-08-06 10:31] VITALS: BP 116/62
[2020-08-06] MEDS ORDERED: AVPAK AZITHROM250 MG PO ×2 (12:19)
[2020-08-06] MEDS ORDERED: PREDNISONE20 M1 PO ×2 (12:19)
[2020-08-06] MEDS ORDERED: TESSALON PERLE100 MG PO (12:19)
== END 2020-08-06 12:43 | disposition home or self-care (01) ==
LOC: ED 10:21
DX: J20.9 Acute bronchitis, unspecified (principal); R09.1 Pleurisy; Z79.899 Other long term (current) drug therapy

== ENCOUNTER → 2020-08-14 | Outpatient (CLI) | payer MEDICARE ==
[~2020-08-14] MED LIST changes: +AVPAK AZITHROM250 MG PO; +TESSALON PERLE100 MG PO
[2020-08-14 10:00] LABS: CHOLESTEROL 155 mg/dL (<200); HDL CHOLESTEROL 43 mg/dl (40-60); LDL CHOLESTEROL 81 mg/dL (9-159); TRIGLYCERIDES 156 mg/dl (<150); VLDL CHOLESTEROL 31 mg/dL (6-40)
== END | disposition home or self-care (01) ==
LOC: LAB 09:05
PROVIDERS: ATTEND Internal Medicine
DX: J43.9 Emphysema, unspecified (principal); I10 Essential (primary) hypertension

== ENCOUNTER → 2020-09-01 | Outpatient (CLI) | payer MEDICARE | END | disposition home or self-care (01) | LOC: US 11:26 | PROVIDERS: ATTEND Internal Medicine | DX: E27.9 Disorder of adrenal gland, unspecified (principal) ==

== ENCOUNTER 2020-11-23 12:38 | Emergency (ER) | payer MEDICARE ==
[~2020-11-23] VITALS: Ht 162.5 cm; Wt 83.9 kg
[2020-11-23 12:47] VITALS: BP 117/88
[2020-11-23 14:40] LABS: BASO # 0.1 10*3/uL (0.0-0.1); BASO % 0.7 % (0.0-1.0); EOS # 0.3 10*3/uL (0.0-0.4); LYMPH # 2.8 10*3/uL (1.3-4.4); LYMPH % 30.7 % (27.0-41.0); MEAN CORPUSCULAR HGB 28.1 pg (27.0-31.0); MEAN CORPUSCULAR HGB CONC 32.3 g/dl (33.0-37.0); MEAN PLATELET VOLUME 10.7 fl (9.6-12.3); MONO # 1.1 10*3/uL (0.1-1.0); MONO % 12.2 % (3.0-9.0); NEUT # 4.8 10*3/uL (2.3-7.9); PLATELET COUNT AUTOMATED 259 10*3/uL (130-400); RED BLOOD COUNT 5.06 10*6/uL (4.10-5.10); RED CELL DISTRI WIDTH 14.2 % (0-14.5)
[2020-11-23 14:50] LABS: ACT PARTIAL THROMBO TIME 28.5 SECONDS (20.0-32.1)
[2020-11-23 14:55] LABS: ALBUMIN 3.8 gm/dl (3.1-4.5); ALKALINE PHOSPHATASE 73 U/L (45-117); BUN 20 mg/dl (7-24); CHLORIDE 107 mmol/L (98-107); CREATININE 0.93 mg/dL (0.55-1.02); LIPASE 149 U/L (73-393); POTASSIUM 4.2 mmol/L (3.5-5.1); SGOT/AST 15 IU/L (3-35); SGPT/ALT 24 U/L (12-78); SODIUM 139 mmol/L (136-145); TOTAL PROTEIN 7.4 gm/dL (6.4-8.2)
[2020-11-23 14:56] LABS: TROPONIN I < 0.015 ng/ml (<0.045)
[2020-11-23] MEDS ORDERED: PREDNISONE50 MG PO (15:27)
[2020-11-23] MEDS ORDERED: ZITHROMAX250 MG PO (15:27)
== END 2020-11-23 15:43 | disposition home or self-care (01) ==
LOC: ED 12:38
PROVIDERS: Emergency Medicine
DX: J20.9 Acute bronchitis, unspecified (principal); R09.1 Pleurisy; I10 Essential (primary) hypertension; J44.9 Chronic obstructive pulmonary disease, unspecified; F17.200 Nicotine dependence, unspecified, uncomplicated; Z79.899 Other long term (current) drug therapy

== ENCOUNTER → 2020-12-23 | Outpatient (CLI) | payer MEDICARE ==
[~2020-12-23] MED LIST changes: +PREDNISONE50 MG PO
== END | disposition home or self-care (01) ==
LOC: CT 08:05
PROVIDERS: ATTEND Internal Medicine
DX: J43.9 Emphysema, unspecified (principal); R07.81 Pleurodynia

== ENCOUNTER 2021-04-23 13:01 | Emergency (ER) | payer MEDICARE ==
[~2021-04-23] VITALS: Ht 162.5 cm; Wt 77.1 kg
[2021-04-23 13:14] VITALS: BP 134/89
[2021-04-23 14:54] LABS: BASO # 0.1 10*3/uL (0.0-0.1); BASO % 0.7 % (0.0-1.0); EOS # 0.1 10*3/uL (0.0-0.4); EOS % 0.7 % (1.0-4.0); HEMATOCRIT 44.5 % (37.0-47.0); LYMPH # 2.6 10*3/uL (1.3-4.4); MEAN CELL VOLUME 85.2 fl (81.0-99.0); MEAN CORPUSCULAR HGB CONC 32.8 g/dl (33.0-37.0); MEAN PLATELET VOLUME 11.9 fl (9.6-12.3); MONO # 1.1 10*3/uL (0.1-1.0); MONO % 12.5 % (3.0-9.0); NEUT # 4.6 10*3/uL (2.3-7.9); NEUT % 54.9 % (47.0-73.0); PLATELET COUNT AUTOMATED 254 10*3/uL (130-400); RED BLOOD COUNT 5.22 10*6/uL (4.10-5.10); RED CELL DISTRI WIDTH 13.1 % (0-14.5); WHITE BLOOD COUNT 8.5 10*3/uL (4.8-10.8)
[2021-04-23 14:57] LABS: BILIRUBIN Negative (Negative); BLOOD Negative (Negative); CLARITY Clear (Clear); COLOR Yellow (Yellow); GLUCOSE Negative (Negative); KETONE Trace (Negative); LEUKO ESTERASE Trace (Negative); NITRITE Negative (Negative); PH 5.5 (4.5-8.0); SPECIFIC GRAVITY >= 1.030 (1.001-1.030)
[2021-04-23 15:08] LABS: ALBUMIN 3.7 gm/dl (3.1-4.5); ALKALINE PHOSPHATASE 83 U/L (45-117); BUN 18 mg/dl (7-24); CHLORIDE 108 mmol/L (98-107); CREATININE 0.79 mg/dL (0.55-1.02); LIPASE 292 U/L (73-393); POTASSIUM 3.9 mmol/L (3.5-5.1); SGOT/AST 12 IU/L (3-35); SGPT/ALT 22 U/L (12-78); SODIUM 138 mmol/L (136-145); TOTAL PROTEIN 7.2 gm/dL (6.4-8.2)
[2021-04-23 15:15] LABS: RBC 0-2 rbc/hpf (0-2)
== END 2021-04-23 17:42 | disposition home or self-care (01) ==
LOC: ED 13:01
PROVIDERS: Physician Assistant
DX: N23 Unspecified renal colic (principal); F17.200 Nicotine dependence, unspecified, uncomplicated; Z79.899 Other long term (current) drug therapy; Z90.49 Acquired absence of other specified parts of digestive tract; Z79.2 Long term (current) use of antibiotics; Z98.890 Other specified postprocedural states; Z90.711 Acquired absence of uterus with remaining cervical stump; Z98.51 Tubal ligation status

== ENCOUNTER → 2022-10-04 | Outpatient (CLI) | payer MEDICARE | END | disposition home or self-care (01) | LOC: RAD 18:22 | PROVIDERS: ATTEND Internal Medicine | DX: J44.1 Chronic obstructive pulmonary disease with (acute) exacerbation (principal) ==

== ENCOUNTER 2022-11-16 16:48 | Emergency (ER) | payer OTHER ==
[~2022-11-16] VITALS: Ht 162.5 cm; Wt 70.8 kg
[~2022-11-16 16:48] MED LIST changes: +ONDANSETRON HYDR4 M1 PO; +VANCOCIN250 M1 PO
[2022-11-16 18:04] LABS: BASO # 0.1 10*3/uL (0.0-0.1); BASO % 0.3 % (0.0-1.0); EOS # 0.1 10*3/uL (0.0-0.4); EOS % 0.8 % (1.0-4.0); HEMATOCRIT 46.5 % (37.0-47.0); LYMPH # 3.1 10*3/uL (1.3-4.4); LYMPH % 20.1 % (27.0-41.0); MEAN CELL VOLUME 87.2 fl (81.0-99.0); MEAN CORPUSCULAR HGB 29.3 pg (27.0-31.0); MEAN CORPUSCULAR HGB CONC 33.5 g/dl (33.0-37.0); MONO # 1.2 10*3/uL (0.1-1.0); MONO % 7.9 % (3.0-9.0); NEUT % 70.6 % (47.0-73.0); PLATELET COUNT AUTOMATED 236 10*3/uL (130-400); RED BLOOD COUNT 5.33 10*6/uL (4.10-5.10); RED CELL DISTRI WIDTH 13.7 % (0-14.5); WHITE BLOOD COUNT 15.5 10*3/uL (4.8-10.8)
[2022-11-16 18:20] LABS: ALKALINE PHOSPHATASE 73 U/L (46-116); BUN 13 mg/dl (9-23); CHLORIDE 103 mmol/L (98-107); LIPASE 47 U/L (12-53); POTASSIUM 3.9 mmol/L (3.4-5.1); SGPT/ALT 15 U/L (10-49)
[2022-11-16 20:03] VITALS: BP 161/85
[2022-11-16] MEDS ORDERED: VANCOCIN250 M1 PO (20:04)
== END 2022-11-16 20:27 | disposition home or self-care (01) ==
LOC: ED 16:48
PROVIDERS: Physician Assistant
DX: A04.72 Enterocolitis due to Clostridium difficile, not specified as recurrent (principal); J45.909 Unspecified asthma, uncomplicated; I10 Essential (primary) hypertension; M81.0 Age-related osteoporosis without current pathological fracture; B19.20 Unspecified viral hepatitis C without hepatic coma; Z90.49 Acquired absence of other specified parts of digestive tract; Z90.710 Acquired absence of both cervix and uterus; Z98.51 Tubal ligation status; Z98.890 Other specified postprocedural states; F17.200 Nicotine dependence, unspecified, uncomplicated

== ENCOUNTER → 2022-12-29 | Outpatient (CLI) | payer OTHER | END | disposition home or self-care (01) | LOC: LAB 13:57 | PROVIDERS: ATTEND Internal Medicine | DX: R19.7 Diarrhea, unspecified (principal) ==

== ENCOUNTER → 2023-01-10 | Outpatient (CLI) | payer OTHER ==
[2023-01-10 11:49] LABS: BASO # 0.1 10*3/uL (0.0-0.1); BASO % 0.4 % (0.0-1.0); EOS # 0.1 10*3/uL (0.0-0.4); HEMATOCRIT 45.7 % (37.0-47.0); LYMPH # 2.2 10*3/uL (1.3-4.4); LYMPH % 16.6 % (27.0-41.0); MEAN CELL VOLUME 86.4 fl (81.0-99.0); MEAN CORPUSCULAR HGB 28.9 pg (27.0-31.0); MEAN CORPUSCULAR HGB CONC 33.5 g/dl (33.0-37.0); MEAN PLATELET VOLUME 11.6 fl (9.6-12.3); MONO # 1.1 10*3/uL (0.1-1.0); MONO % 8.3 % (3.0-9.0); NEUT % 73.4 % (47.0-73.0); PLATELET COUNT AUTOMATED 255 10*3/uL (130-400); RED BLOOD COUNT 5.29 10*6/uL (4.10-5.10); RED CELL DISTRI WIDTH 13.6 % (0-14.5); WHITE BLOOD COUNT 13.5 10*3/uL (4.8-10.8)
[2023-01-10 12:38] LABS: ALKALINE PHOSPHATASE 66 U/L (46-116); BUN 13 mg/dl (9-23); CHLORIDE 106 mmol/L (98-107); POTASSIUM 4.1 mmol/L (3.4-5.1); SGPT/ALT 11 U/L (10-49); TOTAL PROTEIN 6.6 gm/dL (6.0-8.0)
== END | disposition home or self-care (01) ==
LOC: LAB 11:22
PROVIDERS: ATTEND Internal Medicine
DX: R19.7 Diarrhea, unspecified (principal)

== ENCOUNTER → 2023-01-11 | Outpatient (CLI) | payer OTHER | END | disposition home or self-care (01) | LOC: LAB 00:53 | PROVIDERS: ATTEND Internal Medicine | DX: R19.7 Diarrhea, unspecified (principal) ==

== ENCOUNTER 2023-02-19 01:47 | Emergency (ER) | payer OTHER ==
[~2023-02-19] VITALS: Ht 160 cm; Wt 70.6 kg
[2023-02-19 01:51] VITALS: BP 138/97
[2023-02-19 02:20] LABS: BASO % 0.6 % (0.0-1.0); EOS # 0.1 10*3/uL (0.0-0.4); HEMATOCRIT 44.4 % (37.0-47.0); LYMPH # 3.2 10*3/uL (1.3-4.4); LYMPH % 45.9 % (27.0-41.0); MEAN CORPUSCULAR HGB 28.9 pg (27.0-31.0); MEAN CORPUSCULAR HGB CONC 33.6 g/dl (33.0-37.0); MEAN PLATELET VOLUME 11.5 fl (9.6-12.3); MONO # 0.7 10*3/uL (0.1-1.0); MONO % 9.4 % (3.0-9.0); NEUT # 2.9 10*3/uL (2.3-7.9); NEUT % 41.8 % (47.0-73.0); PLATELET COUNT AUTOMATED 227 10*3/uL (130-400); RED BLOOD COUNT 5.16 10*6/uL (4.10-5.10); RED CELL DISTRI WIDTH 13.7 % (0-14.5); WHITE BLOOD COUNT 6.9 10*3/uL (4.8-10.8)
[2023-02-19 02:42] LABS: ALKALINE PHOSPHATASE 70 U/L (46-116); BUN 18 mg/dl (9-23); CHLORIDE 105 mmol/L (98-107); POTASSIUM 3.2 mmol/L (3.4-5.1); SGPT/ALT 12 U/L (10-49); TOTAL PROTEIN 6.9 gm/dL (6.0-8.0)
[2023-02-19 06:41] LABS: BILIRUBIN Negative (Negative); BLOOD Negative (Negative); CLARITY Clear (Clear); COLOR Yellow (Yellow); GLUCOSE Negative (Negative); KETONE Negative (Negative); LEUKO ESTERASE Negative (Negative); NITRITE Negative (Negative); PH 6.5 (4.5-8.0); UROBILINOGEN 0.2 E.U./dl (0.0-1.0)
[2023-02-19 06:48] LABS: URINE AMPHETAMINES Negative (1000ng/ml); URINE BARBITURATES Negative (200ng/ml); URINE BENZODIAZEPINES Negative (200ng/ml); URINE CANNABINOIDS (THC) Negative (50ng/ml); URINE COCAINE Positive (300ng/ml); URINE METHADONE Negative (300ng/ml); URINE OPIATES Positive (300ng/ml); URINE PHENCYCLIDINE Negative (25ng/ml)
[2023-02-19 07:01] LABS: BACTERIA 1+; CALCIUM OXALATE CRYSTALS Trace
== END 2023-02-19 07:26 | disposition home or self-care (01) ==
LOC: ED 01:47
PROVIDERS: Emergency Medicine
DX: F19.10 Other psychoactive substance abuse, uncomplicated (principal); R73.9 Hyperglycemia, unspecified; E87.6 Hypokalemia; F41.9 Anxiety disorder, unspecified; J44.9 Chronic obstructive pulmonary disease, unspecified; I10 Essential (primary) hypertension; E87.1 Hypo-osmolality and hyponatremia; Z90.49 Acquired absence of other specified parts of digestive tract; Z90.710 Acquired absence of both cervix and uterus; Z98.51 Tubal ligation status; Z98.890 Other specified postprocedural states; F17.200 Nicotine dependence, unspecified, uncomplicated

== ENCOUNTER → 2023-03-02 | Outpatient (CLI) | payer OTHER | END | disposition home or self-care (01) | LOC: MAMMO 09:30 | PROVIDERS: ATTEND Internal Medicine | DX: Z12.31 Encounter for screening mammogram for malignant neoplasm of breast (principal); N63.10 Unspecified lump in the right breast, unspecified quadrant ==

== ENCOUNTER → 2023-05-22 | Outpatient (CLI) | payer OTHER | END | disposition home or self-care (01) | LOC: LAB 07:28 | PROVIDERS: ATTEND Internal Medicine | DX: K52.9 Noninfective gastroenteritis and colitis, unspecified (principal) ==

== ENCOUNTER → 2023-07-17 | Outpatient (CLI) | payer OTHER | END | disposition home or self-care (01) | LOC: LAB 14:53 | PROVIDERS: ATTEND Internal Medicine | DX: R19.7 Diarrhea, unspecified (principal) ==

== ENCOUNTER → 2023-09-15 | Outpatient (CLI) | payer OTHER | END | disposition home or self-care (01) | LOC: RAD 02:17 | PROVIDERS: ATTEND Internal Medicine | DX: M81.0 Age-related osteoporosis without current pathological fracture (principal) ==

== ENCOUNTER → 2024-11-13 | Outpatient (CLI) | payer OTHER ==
[~2024-11-13] MED LIST changes: +ALBUTEROL2.5 MG/0.5 INH; +BUPROPION HYDR100 MG PO; +LEXAPRO20 MG PO; +NEURONTIN600 MG PO; +ONDANSETRON HYDR4 MG PO; +OXYBUTYNIN ER15 MG PO; +SYMB160 INH
[2024-11-13 13:01] LABS: BILIRUBIN Negative (Negative); BLOOD Negative (Negative); CLARITY Clear (Clear); COLOR Yellow (Yellow); GLUCOSE Negative (Negative); KETONE Negative (Negative); LEUKO ESTERASE Trace (Negative); NITRITE Negative (Negative); UROBILINOGEN 0.2 E.U./dl (0.0-1.0)
[2024-11-13 13:01] LABS: BASO # 0.1 10*3/uL (0.0-0.1); BASO % 0.7 % (0.0-1.0); EOS # 0.1 10*3/uL (0.0-0.4); EOS % 1.6 % (1.0-4.0); MEAN CELL VOLUME 88.3 fl (81.0-99.0); MEAN CORPUSCULAR HGB 28.6 pg (27.0-31.0); MEAN CORPUSCULAR HGB CONC 32.3 g/dl (33.0-37.0); MEAN PLATELET VOLUME 11.4 fl (9.6-12.3); MONO # 0.8 10*3/uL (0.1-1.0); MONO % 8.9 % (3.0-9.0); NEUT # 4.4 10*3/uL (2.3-7.9); NEUT % 51.5 % (47.0-73.0); PLATELET COUNT AUTOMATED 266 10*3/uL (130-400); RED BLOOD COUNT 5.32 10*6/uL (4.10-5.10); RED CELL DISTRI WIDTH 13.2 % (0-14.5); WHITE BLOOD COUNT 8.6 10*3/uL (4.8-10.8)
[2024-11-13 13:30] LABS: RBC 0-2 rbc/hpf (0-2)
[2024-11-13 13:36] LABS: ALKALINE PHOSPHATASE 69 U/L (46-116); BUN 13 mg/dl (9-23); CHLORIDE 105 mmol/L (98-107); POTASSIUM 4.1 mmol/L (3.4-5.1); SGPT/ALT 13 U/L (5-49); TOTAL PROTEIN 7.1 gm/dL (6.0-8.0)
== END | disposition home or self-care (01) ==
LOC: LAB 12:12
PROVIDERS: ATTEND Urology
DX: R31.9 Hematuria, unspecified (principal)

== ENCOUNTER → 2025-05-05 | Outpatient (CLI) | payer OTHER, MEDICAID ==
[~2025-05-05] MED LIST changes: +ATORVASTATIN CA20 M1 PO; +BACTRIM DS 8001 EACH PO; +NEURONTIN400 MG PO; -NEURONTIN600 MG PO; +TAMSULOSIN HCL0.4 MG PO
== END | disposition home or self-care (01) ==
LOC: MAMMO 04-21 07:30
PROVIDERS: ATTEND Internal Medicine
DX: Z12.31 Encounter for screening mammogram for malignant neoplasm of breast (principal); R92.313 Mammographic fatty tissue density, bilateral breasts

== ENCOUNTER 2025-07-12 18:56 | Emergency (ER) | payer OTHER, MEDICAID ==
[~2025-07-12] VITALS: Ht 162.6 cm; Wt 77.1 kg
[2025-07-12] MEDS ORDERED: Albuterol Sulf/Ipratropium 3 ML VIAL NEB ONE (19:20)
[2025-07-12 19:40] LABS: BASO # 0.1 10*3/uL (0.0-0.1); BASO % 0.5 % (0.0-1.0); EOS # 0.1 10*3/uL (0.0-0.4); EOS % 1.0 % (1.0-4.0); MEAN CELL VOLUME 86.8 fl (81.0-99.0); MEAN CORPUSCULAR HGB 29.0 pg (27.0-31.0); MEAN PLATELET VOLUME 11.6 fl (9.6-12.3); MONO # 1.0 10*3/uL (0.1-1.0); MONO % 8.0 % (3.0-9.0); NEUT # 7.6 10*3/uL (2.3-7.9); NEUT % 62.2 % (47.0-73.0); NUCLEATED RED BLOOD CELL 0.0 % (0.0-0.0); NUCLEATED RED BLOOD CELL 0.0 10*3/uL (0.0-0.0); PLATELET COUNT AUTOMATED 238 10*3/uL (130-400); RED CELL DISTRI WIDTH 13.7 % (0-14.5)
[2025-07-12 19:57] LABS: BUN 12 mg/dl (9-23)
[2025-07-12 20:08] VITALS: BP 158/80
[2025-07-12] MEDS ORDERED: PREDNISONE20 M1 PO (21:39)
[2025-07-12] MEDS ORDERED: AVPAK AZITHROM250 MG PO (21:39)
[2025-07-16] MEDS ORDERED: GEMTESA75 MG PO (13:48)
[2025-07-16] MEDS ORDERED: WELLBUTRIN SR100 MG PO (13:51)
[2025-07-17] MEDS ORDERED: SPIRIVA -- 3018 MCG INH (10:10)
[2025-07-19] MEDS ORDERED: PREDNISONE10 MG PO (00:57)
[2025-07-19] MEDS ORDERED: ZITHROMAX250 MG PO (00:57)
== END 2025-07-12 21:49 | disposition home or self-care (01) ==
LOC: ED 18:56
PROVIDERS: Internal Medicine
DX: J44.1 Chronic obstructive pulmonary disease with (acute) exacerbation (principal); Z20.822 Contact with and (suspected) exposure to COVID-19; F17.200 Nicotine dependence, unspecified, uncomplicated; Z79.899 Other long term (current) drug therapy; Z90.49 Acquired absence of other specified parts of digestive tract; Z98.890 Other specified postprocedural states; Z90.710 Acquired absence of both cervix and uterus